=== PATIENT | female | born 1980 | race Caucasian/White ===

== ENCOUNTER 2021-04-28 09:24 | Emergency (ER) | payer OTHER, SELFPAY ==
[2021-04-28 09:24] VITALS: BP 122/83; PULSE 82; RESP 16; TEMP 35.8; O2SAT 100; BMI 26.6
--- NOTE | 2021-04-28 09:46 | VDLE_ITS ---
Reason For Study: Pain Procedure LEFT This is a venous duplex using B-mode, color GSV is normal. flow and spectral Doppler. CFV is compressible, spontaneous, phasic, Exam performed portable in ED. competent, and demonstrates normal A preliminary report was called and/or faxed augmentation. to [place]. FV is compressible, spontaneous, phasic, competent and demonstrates normal augmentation. POP V is compressible, spontaneous, phasic, competent and demonstrates normal augmentation. T/P Trunk is compressible. PTV is compressible. LT PerV is compressible. VL/Venous Duplex US, Unilateral Interpretation Summary There is no evidence of left lower extremity deep vein thrombosis. Left great s aphenous vein appears patent and compressible segmentally. Ordering Physician: Jesenia Tran Referring Physician: Debra Rodgers Performed By: Vashti Yeboah RVT
--- NOTE | 2021-04-28 09:46 | EKG12_ITS ---
Test Reason : PALPS Blood Pressure : / mmHG Vent. Rate : 071 BPM Atrial Rate : 071 BPM P-R Int : 124 ms QRS Dur : 076 ms QT Int : 384 ms P-R-T Axes : 040 001 041 degrees QTc Int : 417 ms Normal sinus rhythm Low voltage QRS Borderline ECG Confirmed by SEVEN BACON, RAMOS ([id number]), design editor DONNELL SMITH ([id number]) on 04/29/2021 11:37:52 AM Referred By: BRIGITTE/CASPER Confirmed By:RAMOS AMEZCUA MD
--- NOTE | 2021-04-28 09:49 | EX.ED.DYSGE1 ---
HPI History of Present Illness Chief Complaint: Palpitations Informant: patient Narrative Narrative: Patient is a 40-year-old female with Covid diagnosis in April 02 2021 presenting with increased dyspnea on exertion and palpitations. Patient also notes she is been having some pain in her left calf that is now moving to her thigh. She saw her nurse practitioner, Debra Rodgers, who ordered a chest x-ray to rule out DVT which was normal. The patient's sister is a nurse and told her that she needs blood work to rule out PE not a chest x-ray. This is why patient presented to the ER today. Patient did have a chest x-ray on 04/17/[address] [facility] which was negative. Patient currently denies any chest pain or palpitations at rest. Patient was prescribed a prednisone course, cough medicine albuterol after having Covid with no relief of her symptoms. Patient was told she has a leaky heart valve when she was with her son who is now a teenager. She does not remember what it was. [facility] Medical History (Updated 04/28/21 @ 11:[address] Jesenia Tran DO) Cardiac valve prolapse History of COVID-19 Home Medications albuterol sulfate 1 puff INHALATION Q4H PRN PRN 04/28/21 [History Last Taken Unknown] thqtxdcdtkccaqz-[id number]-SV 10 ml PO PRN PRN 04/28/21 [History Last Taken Unknown] Allergy/AdvReac Type Severity Reaction Status Date / Time codeine AdvReac Other Verified 04/28/21 09:26 Social History Smoking Status: Never smoker ROS ROS ED Constitutional Constitutional ED: Reports chills; Denies fever(s) Eyes Eyes: Denies blurry vision ENT ENT ED: Denies ear pain or sore throat Cardiovascular Cardiovascular: Reports chest pain, palpitations and racing heartbeat Respiratory/Chest Respiratory/Chest: Reports dyspnea on exertion; Denies dyspnea Gastrointestinal Gastrointestinal: Denies abdominal pain, diarrhea, nausea or vomiting Genitourinary Genitourinary ED: Denies dysuria or hematuria Musculoskeletal Musculoskeletal: Denies arthralgias or myalgias Integumentary Denies rash Neurologic Neurologic: Denies headache(s) or weakness Psychiatric Psychiatric: Denies depression EXAM Physical Exam Const Vital Signs: 04/28/21 09:24 04/28/21 09:57 Temperature 96.5 F L Temperature Source Temporal Pulse Rate 82 Respiratory Rate 16 Respiratory Effort Normal Non-Labored Blood Pressure 122/83 H Blood Pressure Mean 96 Pulse Ox 100 Oxygen Delivery Method Room Air Positive well nourished and well developed General Appearance ED: well developed HEENT Reports dry mucous membranes Negative for trauma Mouth ED: Yes dry mucous membranes Mouth: dry mucous membranes Eyes PERRL and EOMs intact bilaterally Neck supple Chest Wall inspection of chest normal Resp normal respiratory effort and clear to auscultation bilaterally Cardio regular rate, regular rhythm and no murmurs GI normal to inspection, nondistended, normoactive bowel sounds and non-tender Palpation: soft Extremity normal to inspection Extremity Narrative: No palpable cords appreciated, no obvious edema or asymmetry present General Extremety ED: Negative for edema or tenderness General Extremity: Negative for edema Neuro oriented x3 Sensorium / Orientation: alert Motor Exam: Negative for general weakness Psych mental status grossly normal Skin no rashes or lesions noted and no wounds MDM MDM MDM Narrative Medical decision making narrative: Patient evaluated for worsening dyspnea on exertion and shortness of breath after Covid 19 infection. She is not having a respecters for PE. D-dimer is normal. Venous duplex of the lower extremity obtained as patient is feels that she is been having some swelling and discomfort. D-dimer is negative and venous duplex is negative for acute DVT. Patient's hemoglobin is mildly elevated at 16.1 but she has no other laboratory normalities. Count is normal. EKG is grossly normal. Exact cause her symptoms are not clear however patient will be given referral for pulmonology for outpatient follow-up. She is requesting referral for cardiology as well as she has appointment to see Dr. Cole next month for further evaluation of her symptoms as well. Patient is counseled that the exact cause her symptoms not clear I do think she is safe to go home. She was given a liter of IV fluids in the emergency room. Lab Data Attestation: I reviewed the patient's lab results. Labs: Laboratory Results - last 24 hr 04/28/21 04/28/21 04/28/21 09:45 09:45 09:45 WBC 6.8 RBC 5.14 Hgb 16.1 H Hct 47.1 H MCV 91.6 MCH 31.3 MCHC 34.2 RDW Std Deviation 42.5 RDW Coeff of Arslan 12.6 Plt Count 218 MPV 12.1 H Immature Gran % (Auto) 0.300 Neut % (Auto) 62.8 Lymph % (Auto) 28.7 [place] % (Auto) 6.1 Eos % (Auto) 1.5 Baso % (Auto) 0.6 Absolute Neuts (auto) 4.2 Absolute Lymphs (auto) 1.94 Nucleated RBC % 0 D-Dimer Quant (PE/DVT) <= 0.27 Sodium 137 Potassium 3.7 Chloride 106 Carbon Dioxide 26.0 Anion Gap 5 BUN 7 Creatinine 0.81 Estim Creat Clear Calc 91.27 Est GFR (MDRD) Af Amer 100 Est GFR (MDRD) Non-Af 82 BUN/Creatinine Ratio 8.7 L Glucose 94 Calcium 9.4 Troponin I High Sens < 3 L TSH Urine Test 04/28/21 04/28/21 09:45 10:45 WBC RBC Hgb Hct MCV MCH MCHC RDW Std Deviation RDW Coeff of Arslan Plt Count MPV Immature Gran % (Auto) Neut % (Auto) Lymph % (Auto) Y[place] % (Auto) Eos % (Auto) Baso % (Auto) Absolute Neuts (auto) Absolute Lymphs (auto) Nucleated RBC % D-Dimer Quant (PE/DVT) Sodium Potassium Chloride Carbon Dioxide Anion Gap BUN Creatinine Estim Creat Clear Calc Est GFR (MDRD) Af Amer Est GFR (MDRD) Non-Af BUN/Creatinine Ratio Glucose Calcium Troponin I High Sens TSH 1.57 Urine Test Negative Rhythm Strip Rhythm Strip: Sinus Rhythm Rate: 71 Ectopy: None EKG Initial EKG: Attestation: I personally reviewed and interpreted this EKG as follows: Interpretation: Sinus Rhythm Comments: Normal sinus rhythm at a rate of 71 Normal axis Normal intervals Normal ST segments Low voltage QRS Prior: No Prior Discharge Plan Triage Chief Complaint: Palpitations ED Provider: Jesenia Tran Dx/Rx/DC Orders Clinical Impression: Dyspnea Instructions: ED Dyspnea Prescriptions: No Action albuterol sulfate 90 mcg/actuation HFA aerosol inhaler 1 puff INHALATION Q4H PRN PRN (Reason: Shortness Of Breath) RF: 0 hvlkvjkzpjfwixd-tqmxrethl-SR 2-30-10 mg/5 mL syrup 10 ml PO PRN PRN (Reason: Cough) RF: 0 Primary Care Provider: Debra Rodgers NP Referrals: Pranay Cole MD [STAFF PHYSICIAN] - James Shelby DO [STAFF PHYSICIAN] - As Needed Debra Rodgers NP, PLUG MACHINE OPERATOR-C [Primary Care Provider] - Disposition Disposition: Home, Self Care
[2021-04-28 10:00] LABS: Absolute Lymphocyte Count 1.94 X10^3/uL (0.83-4.51); Absolute Neutrophil Count 4.2 X10^3/uL (2.0-7.7); Basophil# 0.04 X10^3/uL; Basophil% 0.6 % (0-1); Eosinophils% 1.5 % (0-5); Hematocrit 47.1 % (37-47); Hemoglobin 16.1 g/dL (12.0-15.0); Lymphocyte # 1.94 X10^3/ul (0.83-4.51); Lymphocyte % 28.7 % (19-41); Mean Corp Hgb Conc 34.2 g/dL (32-36); Mean Corpuscular Hgb 31.3 pg (27.0-32.0); Mean Corpuscular Volume 91.6 fL (81-99); Mean Platelet Vol. 12.1 fl (6.2-12.0); Monocyte# 0.41 X10^3/uL; Monocyte% 6.1 % (0-10); NRBC Flagged by Analyzer 0 % (0-5); Neutrophil # 4.24 X10^3/uL (2.7-7.7); Neutrophil % 62.8 % (47-70); Platelet Count 218 K/mm3 (150-450); RBC Distribution Width CV 12.6 % (11.6-14.6); RBC Distribution Width SD 42.5 fl (35.1-43.9); Red Blood Count 5.14 M/mm3 (4.2-5.4); White Blood Count 6.8 K/mm3 (4.4-11.0)
[2021-04-28 10:13] LABS: D-Dimer Quantitative (DVT/PE) <= 0.27 FEU/ug/m (0.27-0.49)
[2021-04-28] MEDS: 0.9% Normal Saline 1,000 ML 1000 ML IV (10:17)
[2021-04-28 10:19] LABS: Anion Gap 5 (5-15); BUN 7 mg/dL (7-18); BUN/Creat Ratio 8.7 RATIO (10-20); Calcium,Total 9.4 mg/dL (8.5-10.1); Chloride 106 mmol/L (98-107); Creatinine, Serum 0.81 mg/dL (0.55-1.02); EST Glomerular Filtration Rate 82 mL/min (>60); Est Glom Filt Rate - Afr Amer 100 mL/min (>60); Estimated Creatinine Clearance 91.27 ml/min; Glucose 94 mg/dL (74-106); Potassium 3.7 mmol/L (3.5-5.1); Sodium Level 137 mmol/L (136-145); Troponin-I HS < 3 pg/mL (3.0-54.0)
[2021-04-28 11:03] LABS: Thyroid Stim Hormone (TSH) 1.57 uIU/mL (0.358-3.74)
[2021-04-28 11:05] LABS: Internal QC Validated? YES +Cl - CLEAR BKGD; Pregnancy, Urine Negative Negative
== END 2021-04-28 12:06 | disposition home or self-care (01) ==
PROVIDERS: Emergency Provider Emergency Medicine; PCP Nurse Practitioner Family; Visit Provider Emergency Medicine
DX: R00.2 Palpitations (principal); R06.00 Dyspnea, unspecified; M79.662 Pain in left lower leg
CPT/HCPCS: 80048; 81025; 84443; 84484; 85025; 85379; 93005; 93971; 96360; 99284

== ENCOUNTER 2021-05-27 06:31 | Outpatient (CLI) | payer OTHER, SELFPAY ==
--- NOTE | 2021-05-27 13:45 | PFT ---
INTRODUCTION: The patient is a 40-year-old female that presents for pulmonary function studies secondary to a history of COVID-19. Respiratory therapy reported good patient effort. Bronchodilators were used during testing. INTERPRETATION: Forced expiration spirometry demonstrates no evidence of a large airways obstructive ventilatory defect. There was no significant response to aerosolized bronchodilators. Spirograms are of fair quality and plateau gradually indicating slow emptying of the lungs. Body plethysmography was performed and reveals lung volumes to be within normal limits. Diffusing capacity by single breath CO is also within normal limits. IMPRESSION: Grossly normal pulmonary function studies.
== END 2021-05-27 23:59 | disposition home or self-care (01) ==
LOC: PSN 06:32
PROVIDERS: PCP Nurse Practitioner Family; Referring Provider Internal Medicine Critical Care Medicine; Visit Provider Internal Medicine Critical Care Medicine
DX: Z86.16 Personal history of COVID-19 (principal)
CPT/HCPCS: 94060; 94726; 94729

== ENCOUNTER 2021-06-06 10:06 | Outpatient (CLI) | payer OTHER, SELFPAY ==
[2021-06-06 11:08] LABS: CRP, High Sensitivity Cardiac 0.45 mg/L; Thyroid Stim Hormone (TSH) 1.15 uIU/mL (0.358-3.74)
== END 2021-06-06 23:59 | disposition home or self-care (01) ==
LOC: LAB 10:08
PROVIDERS: PCP Nurse Practitioner Family; Visit Provider Internal Medicine Cardiovascular Disease
DX: R00.2 Palpitations (principal); R06.02 Shortness of breath; U09.9 Post COVID-19 condition, unspecified
CPT/HCPCS: 36415; 84443; 86141

== ENCOUNTER 2021-06-10 10:07 | Outpatient (CLI) | payer OTHER, SELFPAY ==
--- NOTE | 2021-06-10 10:09 | ECHOD_ITS ---
Version 2 Reason For Study: chest pain Procedure This was a 2D Doppler, Color Flow transthoracic echocardiogram. Exam performed in department. Left Ventricle Normal LV size. Left ventricular systolic function is normal. The estimated ejection fraction is 60 %. No regional wall motion abnormalities noted. Right Ventricle Normal RV size. Normal systolic function. Atria Normal left atrium. Normal right atrium. Mitral Valve Equivocal mitral valve prolapse. Tricuspid Valve Normal tricuspid valve. Mild tricuspid valve insufficiency. Aortic Valve Normal aortic valve. Trisinus/trileaflet aortic valve. Pulmonic Valve Normal pulmonic valve. Great Vessels Normal aortic root. The pulmonary artery is normal size. Normal inferior vena cava. Pericardium/Pleural No pericardial effusion. MMode/2D Measurements & Calculations LVIDd: 4.6 cm IVSd: 0.92 cm Ao root diam: 2.5 cm LVIDs: 3.0 cm LVPWd: 0.82 cm RVDd: 3.1 cm FS: 35.4 % LAV(MOD-sp4): 27.3 ml LA A4 area: 12.9 cm2 LA dimension(2D): 3.0 cm RA A4 area: 12.5 cm2 Time Measurements MV dec time: 0.23 sec Doppler Measurements & Calculations MV E max ascencion: 62.9 cm/sec Lat Peak E' Ascencion: 13.9 cm/sec Med Peak E' Ascencion: 8.8 cm/sec MV A max ascencion: 38.9 cm/sec E/E' lat: 4.5 E/E' med: 7.1 MV E/A: 1.6 Ao V2 max: 103.0 cm/sec LV V1 max: 80.1 cm/sec PA V2 max: 82.7 cm/sec Ao max P.2 mmHg LV V1 max P.6 mmHg TR max ascencion: 161.3 cm/sec TR max P.4 mmHg ECHO/Echo Complete Interpretation Summary Normal LV size. Left ventricular systolic function is normal. The estimated ejection fraction is 60 %. Equivocal mitral valve prolapse. Mild tricuspid valve insufficiency. Ordering Physician: Kelsey^Pranay^^^ Referring Physician: Pranay Cole Performed By: Mary Mac, BETY, RVT
== END 2021-06-10 23:59 | disposition home or self-care (01) ==
LOC: CVS 10:08
PROVIDERS: PCP Nurse Practitioner Family; Referring Provider Internal Medicine Cardiovascular Disease; Visit Provider Internal Medicine Cardiovascular Disease
DX: R07.9 Chest pain, unspecified (principal); U09.9 Post COVID-19 condition, unspecified
CPT/HCPCS: 93306

== ENCOUNTER 2021-06-12 07:54 | Outpatient (CLI) | payer OTHER, SELFPAY ==
[2021-06-12 08:29] VITALS: PULSE 100; PULSE 79; PULSE 82; PULSE 94; PULSE 95; PULSE 98; PULSE 99; O2SAT 100; O2SAT 99
--- NOTE | 2021-06-13 07:22 | PCM.PSN.6M ---
PSN 6 Minute Walk Test 6 Minute Walk Test 6 Minute Walk Test: 6 Minute Walk Test PSN:6-Minute Walk Test Start: 06/12/21 08:29 Freq: Status: Active Protocol: RESP.6MINW Document 06/12/21 08:29 CONNOR (Rec: 06/12/21 08:32 CONNOR [id number]) 6 Minute Walk Test Date Performed 06/12/21 Time Performed 08:00 Height 5 ft 8 in Weight: 79.379 kg Weight in Pounds 175.[address]: James Shelby Assistive device used: None Pre-test Oxygen Delivery Method Room Air Pulse Ox (%) 99 Pulse Rate (60-100 beats/min) 82 Dyspnea Martina Scale (0-10) 0.5 Exertion Martina Scale (6-20) 6 1st minute Oxygen Delivery Method Room Air Pulse Ox (%) 99 Pulse Rate (60-100 beats/min) 100 2nd minute Oxygen Delivery Method Room Air Pulse Ox (%) 99 Pulse Rate (60-100 beats/min) 94 3rd minute Oxygen Delivery Method Room Air Pulse Ox (%) 99 Pulse Rate (60-100 beats/min) 98 4th minute Oxygen Delivery Method Room Air Pulse Ox (%) 99 Pulse Rate (60-100 beats/min) 99 5th minute Oxygen Delivery Method Room Air Pulse Ox (%) 99 Pulse Rate (60-100 beats/min) 98 6th minute Oxygen Delivery Method Room Air Pulse Ox (%) 99 Pulse Rate (60-100 beats/min) 95 Dyspnea Martina Scale (0-10) 3 Exertion Martina Scale (6-20) 13 Post-test Oxygen Delivery Method Room Air Pulse Ox (%) 100 Pulse Rate (60-100 beats/min) 79 Full Laps Walked 12 Partial Lap, Number of Tiles Walked 50 Total Distance Walked (ft) 758 Interpretation Interpretation: The patient ambulated 758 feet over the course of 6 minutes beginning on room air without assistive devices. Pretesting oxygen saturation was noted to be 99% on room air. With ambulation, the christine oxygen saturation was 99%. There was no significant exertional oxygen desaturation. Recommendations Recommendations: There is no indication for the use of supplemental oxygen at this time.
== END 2021-06-12 23:59 | disposition home or self-care (01) ==
LOC: PSN 07:55
PROVIDERS: PCP Nurse Practitioner Family; Referring Provider Internal Medicine Critical Care Medicine; Visit Provider Internal Medicine Critical Care Medicine
DX: Z86.16 Personal history of COVID-19 (principal)
CPT/HCPCS: 94618

== ENCOUNTER 2021-06-23 08:50 | Outpatient (CLI) | payer OTHER, SELFPAY ==
--- NOTE | 2021-06-23 16:44 | STRESSREP ---
Stress Test Report Exercise stress test. 40-year-old lady with a history of chest pain pain Stress protocol: Resting EKG demonstrates normal sinus rhythm with a rate of 64 bpm normal intervals are noted resting blood pressure is 118/78 mmHg. Patient exercised according to regular Paul protocol for total duration of 4 minutes and 12 seconds. The maximum heart rate attained was 144 bpm which was 80% of max impact at heart rate the maximum workload was 7 metabolic equivalents. At rest there were no ST or T wave changes noted to suggest ischemia and at peak exercise upsloping ST changes were noted with did not meet the criteria for ischemia. No clinical angina was noted. The peak blood pressure was 142/82 mmHg. The test was terminated due to fatigue and slight chest discomfort. Conclusion: Exercise stress test with no EKG criteria for ischemia at a moderate workload.
== END 2021-06-23 23:59 | disposition home or self-care (01) ==
LOC: CVS 08:51
PROVIDERS: PCP Nurse Practitioner Family; Referring Provider Internal Medicine Cardiovascular Disease; Visit Provider Internal Medicine Cardiovascular Disease
DX: R06.02 Shortness of breath (principal); R00.2 Palpitations
CPT/HCPCS: 93017